=== PATIENT | female | born 1970 | race Caucasian/White ===

== ENCOUNTER → 2022-04-15 07:49 | Outpatient (CLI) | payer BC, SELFPAY ==
--- NOTE | ~2022-04-15 | XR_ITS ---
XR hip RT 2V w AP pelvis DATE: 04/15/2022 08:11 INDICATION: Right hip pain TECHNIQUE: AP pelvis. AP and lateral views of right hip COMPARISON: None FINDINGS: There is osteopenia. No pelvic fracture or bone destruction is detected. The pubic symphysis and sacroiliac joints are int act. Hip joint spaces are symmetric and relatively preserved. No fracture or dislocation, avascular n ecrosis or bone destruction of the right hip is detected. Surgical clips overlie the abdomen and pelvis. IMPRESSION: Osteopenia Reviewed, dictated and finalized at location B. IMPRESSION: Osteopenia
== END ==
PROVIDERS: PCP Family Medicine; Visit Provider Family Medicine
DX: M53.3 Sacrococcygeal disorders, not elsewhere classified (principal); M85.851 Other specified disorders of bone density and structure, right thigh
CPT/HCPCS: 73502

== ENCOUNTER 2022-05-22 12:58 | Emergency (ER) | payer BC, SELFPAY ==
[2022-05-22 13:17] VITALS: BP 149/85; PULSE 75; RESP 16; TEMP 36.9; O2SAT 100
--- NOTE | 2022-05-22 13:22 | ECG_ITS ---
Measurements Intervals [place] Rate: 56 P: 22 TX: 125 QRS: 23 QRSD: 84 T: 16 QT: 388 QTc: 376 Interpretive Statements SINUS BRADYCARDIA NONSPECIFIC T-WAVE ABNORMALITY NO PREVIOUS ECG AVAILABLE FOR COMPARISON Electronically Signed On 05-23-2022 14:12:12 CDT by Freddy Goldman M.D.
[2022-05-22 13:35] LABS: Basophils Percent Auto 0.2 % (0.2-1.2); Eosinophils Percent Auto 0.6 % (0-4.4); Hematocrit 38.5 % (37.0-47.0); Hemoglobin 11.7 g/dL (12.0-15.0); Immature Granulocyte Absolute 0.02 K/mm3 (0.00-0.031); Immature Granulocyte Percent A 0.4 % (0-0.5); Lymphocytes Absolute Auto 0.78 K/mm3 (0.9-3.2); Lymphocytes Percent Auto 16.8 % (18.3-44.2); Mean Corpuscular HGB Conc 30.4 g/dl (32-36); Mean Corpuscular Hemoglobin 22.3 pg (26-34); Mean Corpuscular Volume 73.3 fl (80-100); Mean Platelet Volume 10.4 fl (7.4-10.4); Monocytes Absolute Auto 0.4 K/mm3 (0.1-0.6); Neutrophils Absolute Auto 3.4 K/mm3 (1.3-6.7); Platelet Count Result 225 k/mm3 (150-375); Red Blood Count 5.25 M/mm3 (4.2-5.4); Red Cell Distribution Width 22.9 % (11.5-14.5); White Blood Count 4.7 K/mm3 (4.5-10.0)
[2022-05-22 13:54] LABS: Alanine Aminotransferase 17 U/L (6-35); Alkaline Phosphatase 130 U/L (38-126); Anion Gap 9 mmol/L (8-16); Aspartate Amino Transferase 19 U/L (14-36); Bilirubin,Total 0.5 mg/dL (0.2-1.3); Blood Urea Nitrogen 12 mg/dL (7-17); Calcium 9.1 mg/dL (8.4-10.2); Carbon Dioxide 26 mmol/L (22-30); Chloride 103 mmol/L (98-107); Estimated CRCL calculation 84 ml/min; Estimated Glomerular Filt Rate > 60; Glucose 112 mg/dL (65-110); Lipase 128 U/L (23-300); Potassium 3.5 mmol/L (3.4-5.0); Sodium 138 mmol/L (137-145)
[2022-05-22 13:59] LABS: Platelet Estimate Adequate (Adequate)
[2022-05-22 14:00] LABS: Anisocytosis 2+ (NORMAL); Ovalocytes 2+ (NORMAL); Poikilocytosis 1+ (NORMAL); Tear Drop Cells 1+ (NORMAL)
[2022-05-22 16:08] VITALS: BP 136/76; PULSE 58; RESP 18; O2SAT 100
[2022-05-22 16:22] LABS: Appearance Urine Clear (Clear); Bilirubin Urine Negative (Negative); Blood Urine Negative (Negative); Color Urine Yellow (Yellow); Glucose Urine UA Negative (Negative); Ketones Urine Negative (Negative); Leukocyte Esterase Ur Trace LEU/UL (Negative); Nitrate Urine Negative (Negative); Protein Urine Negative (Negative); Specific Grav Ur 1.015 (1.001-1.035); Urobilinogen Urine 0.2 mg/dL (<2.0); pH Urine 8.5 (5.0-9.0)
[2022-05-22 16:29] LABS: Amorphous Sediment Urine Moderate; Bacteria Urine Trace /hpf; Mucus Urine Rare /lpf; RBC Urine 0-2 /hpf (0-2); WBC Urine 0-3 /hpf
[2022-05-22 16:30] LABS: Add Urine Microscopic? YES
[2022-05-22] MEDS: BELLADONNA ALK/PHENOB ELIX 10 ML, MAG HYDROX/ALUMINUM HYD/SIMETH 30 ML, LIDOCAINE HCL 2... PO (17:00)
--- NOTE | 2022-05-22 19:08 | ED.GENADULT ---
HPI - General Adult General Chief complaint: Abdominal Pain Stated complaint: epigastric pain Time Seen by Provider: 05/22/22 16:12 History of Present Illness HPI narrative: Patient is a 51-year-old female who presents ER with acid reflux. Ongoing over the last couple days. She has been taking calcium carbonate to try to decrease her discomfort. It works intermittently. Feels a burning going up into her chest and throat. Has had issues with this in the past and used to take Protonix. She does not have any Protonix at this time. No exertional chest pain or chest pressure. No dark black stools. Has had no diarrhea. Related Data Allergies Allergy/AdvReac Type Severity Reaction Status Date / Time No Known Allergies Allergy Verified 05/22/22 16:11 Review of Systems Review of Systems: All systems reviewed & are unremarkable except as noted in HPI and below Constitutional: Constitutional: Denies chills and Denies fever(s) Cardiovascular: Cardiovascular: Denies chest pain, Denies rapid heart rate and Denies radiating jaw, neck or arm pain Respiratory: Respiratory: Denies cough and Denies dyspnea Gastrointestinal: Gastrointestinal: Denies abdominal pain, Reports heartburn, Denies diarrhea, Denies nausea and Denies vomiting PMFSH Past Medical History Medical History Asthma Cervical cancer, FIGO stage IB2 Gout Morbid obesity JOELLE (obstructive sleep apnea) TMJ articul disc disordr Surgical History Surgical History Bariatric surgery status S/P total hysterectomy and BSO (bilateral salpingo-oophorectomy) Status post chemotherapy Status post radiation therapy Social History Social History (Updated 05/10/22 @ 07:40 by Sana Gillespie) Social History: Smoking status: Never smoker Second hand tobacco smoke exposure: No Alcohol intake: current Alcohol use details: socially Substance use: never Substance use type: does not use Gender identity (if verbalized by the patient): Female Sexual Orientation (if Verbalized by the Patient): Straight or Heterosexual Exam Narrative: GENERAL: Well-appearing, well-nourished, and in no acute distress. HEAD: Normocephalic, atraumatic. NECK: Supple. CHEST: Clear to auscultation. No respiratory distress. HEART: Regular rate and rhythm. Normal peripheral pulses. ABDOMEN: Soft, nontender, nondistended. EXTREMITIES: Normal range of motion. No edema. SKIN: Warm, dry, no rash. NEURO: Alert and oriented x3. PSYCH: Normal mood and affect. Course Course Emergency Course: Patient given GI cocktail. Will treat as stomach ulcer with twice daily Protonix. Vital Signs Vital signs: Vital Signs Temperature 98.4 F 05/22/22 13:17 Pulse Rate 75 05/22/22 13:17 Respiratory Rate 16 05/22/22 13:17 Blood Pressure 149/85 H 05/22/22 13:17 Pulse Oximetry 100 05/22/22 13:17 Oxygen Delivery Room Air 05/22/22 13:17 Temperature 98.4 F 05/22/22 13:17 Pulse Rate 58 L 05/22/22 16:08 Respiratory Rate 18 05/22/22 16:08 Blood Pressure 136/76 05/22/22 16:08 Pulse Oximetry 100 05/22/22 16:08 Oxygen Delivery Room Air 05/22/22 16:08 Medical Decision Making Vital Signs Vital Signs: Vital Signs Temperature 98.4 F 05/22/22 13:17 Pulse Rate 75 05/22/22 13:17 Respiratory Rate 16 05/22/22 13:17 Blood Pressure 149/85 H 05/22/22 13:17 Pulse Oximetry 100 05/22/22 13:17 Oxygen Delivery Room Air 05/22/22 13:17 Temperature 98.4 F 05/22/22 13:17 Pulse Rate 58 L 05/22/22 16:08 Respiratory Rate 18 05/22/22 16:08 Blood Pressure 136/76 05/22/22 16:08 Pulse Oximetry 100 05/22/22 16:08 Oxygen Delivery Room Air 05/22/22 16:08 Lab Data Result diagrams: 05/22/22 13:29 05/22/22 13:30 Labs: Lab Results 05/22/22 05/22/22 05/22/22 Range/Units 13:29 13:30 16:12 WBC
[2022-05-22 19:42] VITALS: BP 119/66; PULSE 81; RESP 20; O2SAT 98
== END 2022-05-22 19:47 | disposition home or self-care (01) ==
PROVIDERS: Emergency Medicine; Emergency Provider Emergency Medicine; PCP Family Medicine
DX: K21.9 Gastro-esophageal reflux disease without esophagitis (principal); J45.909 Unspecified asthma, uncomplicated; M10.9 Gout, unspecified; E66.01 Morbid (severe) obesity due to excess calories; Z68.27 Body mass index [BMI] 27.0-27.9, adult; Z90.710 Acquired absence of both cervix and uterus; Z90.722 Acquired absence of ovaries, bilateral; Z90.79 Acquired absence of other genital organ(s); Z85.42 Personal history of malignant neoplasm of other parts of uterus; R00.1 Bradycardia, unspecified; R94.31 Abnormal electrocardiogram [ECG] [EKG]
CPT/HCPCS: 36415; 80053; 81001; 81025; 83690; 85025; 93005; 99283; A9270

== ENCOUNTER 2022-11-14 08:03 | Outpatient (CLI) | payer BC, SELFPAY ==
--- NOTE | ~2022-11-14 | US_ITS ---
EXAMINATION: US venous doppler [facility] DATE: 11/14/2022 09:22 INDICATION: Lower limb pain TECHNIQUE: Grayscale ultrasound images without and with compression and Doppler ultrasound images of the bilateral lower extremity veins were obtained. COMPARISON: None. FINDINGS: The visualized portions of right common femoral vein, profunda (deep) femoral vein, femoral vein, pop liteal vein, posterior tibial veins, peroneal veins, gastrocnemius vein and greater saphenous vein ou tflow are patent. The visualized portions of left common femoral vein, profunda femoral vein, femoral vein, popliteal v ein, posterior tibial veins, peroneal veins, gastrocnemius vein and greater saphenous vein outflow ar e patent. IMPRESSION: 1. No deep venous thrombosis in either lower limb. Reviewed, dictated and finalized at location A. [employer] TRA[employer]
--- NOTE | ~2022-11-14 | US_ITS ---
EXAMINATION: US art doppler w press LE DATE: 11/14/2022 09:22 INDICATION: Claudication. TECHNIQUE: Segmental pressures and plethysmographic and Doppler waveforms of the brachial and lower e xtremity arteries were obtained. COMPARISON: None. FINDINGS: Right and left brachial artery pressures of 124 mm Hg and 114 mm Hg, respectively, are concordant (no rmal difference <= 30 mmHg). The right low-thigh pressure index is 1.37. The right ankle-brachial index (SEBAS) is 1.21 (normal >= 0 .9-1.0). The right great toe-brachial index (TBI) is 0.90 (normal >= 0.65). Arterial Doppler waveform s are triphasic in common femoral artery and biphasic from superficial femoral artery to the ankle. The left high-thigh pressure index is 1.34. The left SEBAS is 1.19. The left TBI is 0.79. Arterial Dopp ler waveforms are at least triphasic in common femoral artery and superficial femoral artery, biphasi c in popliteal artery, and at least triphasic at the ankle. IMPRESSION: 1. No significant arterial occlusive disease. Reviewed, dictated and finalized at location A. CAL ATTENDANT
== END 2022-11-14 08:04 | disposition home or self-care (01) ==
PROVIDERS: PCP Family Medicine; Visit Provider Nurse Practitioner Gerontology
DX: M79.89 Other specified soft tissue disorders (principal); M79.606 Pain in leg, unspecified
CPT/HCPCS: 93923; 93970

== ENCOUNTER 2023-03-16 12:08 | Outpatient (CLI) | payer BC, SELFPAY ==
--- NOTE | ~2023-03-16 | XR_ITS ---
AP view of the pelvis and AP and lateral views of the bilateral hips Clinical history: Pain Findings: No acute fracture or dislocation is seen. There is severe degenerative change of both hip j oints, with marked joint space narrowing and reactive sclerotic change. There is mild flattening/cristi deling of the left femoral head Soft tissues are unremarkable. Impression: Severe osteoarthritic change of both hip joints, which is rapidly and significantly progressed as com pared to 04/15/2022. Finding suggests rapidly destructive osteoarthritis of both hip joints. Correlate clinically for other inflammatory/erosive arthropathy. Reviewed, dictated and finalized at location M. Impression: Severe osteoarthritic change of both hip joints, which is rapidly and significa ntly progressed as compared to 04/15/2022. Finding suggests rapidly destructive o steoarthritis of both hip joints. Correlate clinically for other inflammatory/e rosive arthropathy.
== END 2023-03-16 12:09 | disposition home or self-care (01) ==
PROVIDERS: PCP Family Medicine; Visit Provider Family Medicine
DX: R68.89 Other general symptoms and signs (principal); M16.0 Bilateral primary osteoarthritis of hip
CPT/HCPCS: 73521

== ENCOUNTER 2023-04-07 13:55 | Outpatient (CLI) | payer BC, SELFPAY ==
--- NOTE | ~2023-04-07 | DEXA_ITS ---
Bone Density Report Name: BEN SOLIS Age: 52 Sex: Female Ethnicity: White Date of : 1970 Indication: postmenopausal; screening for osteoporosis; height loss; prior fracture; cancer; Referring Provider: LASHA OGDEN Study: Bone densitometry was performed. Exam Date: April 07, 2023 Accession number: [id number] Bone Density: Region BMD T-score Z-score Classification AP Spine(L1-L4) 0.800 -2.2 -1.4 Osteopenia Femoral Neck (Left) 0.805 -0.4 0.4 Normal Total Hip (Left) 0.643 -2.4 -1.9 Osteopenia Femoral Neck (Right) 0.723 -1.1 -0.3 Osteopenia Total Hip (Right) 0.667 -2.3 -1.7 Osteopenia Total Hip Mean 0.655 -2.4 -1.8 Osteopenia World Health Organization criteria for BMD impression classify patients as: Normal (T-score at or above -1.0), Osteopenia (T-score between -1.0 and -2.5), or Osteoporosis (T-score at or below -2.5). 10-year Fracture Risk: FRAX not reported because: Prior hip or vertebral fracture Clinical Information Provided by Patient: Have had a previous hip or vertebral fracture Has had a low trauma fracture Has used the following medications: Vitamin D, Calcium Has the following medical conditions: Cancer Patient maximum height was 69 Menopause Age: 50 Does not regularly consume dairy products Drinks caffeinated beverages Onset of menses at age 12 Number of children 0 Impression: The patient has low bone mass, based on the Left Total Hip T-score. The patient has risk factors, including: previous fracture. Discussion: INCREASED RISK OF FRACTURE DUE TO HISTORY OF FRACTURE. The patient's previous fracture puts the patient at high risk of a future fracture. In untreated patients, the risk of osteoporotic fracture increases approximately two-fold for each 1.0 SD decrease in T-score. Low bone density is not the only risk factor for fracture; also consider factors such as patient's age, frailty or poor health, risk of falling, risk of injury, previous osteoporotic fracture, family history of osteoporosis, cigarette smoking, low body weight, etc. Not everyone with a low trauma fracture has osteoporosis; osteomalacia and other metabolic bone disorders should also be considered. Patients who have osteoporosis should be evaluated for specific diseases and conditions (secondary causes) that may cause or contribute to bone loss and fracture risk. National Osteoporosis Foundation (NOF) recommends pharmacologic intervention for patients with a prior hip or vertebral fracture regardless of BMD T-score. The patient should follow a healthful lifestyle (good nutrition with adequate calcium and vitamin D, and appropriate weight-bearing exercise). Follow-Up: Consider a repeat BMD and Vertebral Fracture Assessment (VFA) exam in 2 years or sooner if medically necessary, to reassess this patient's
== END 2023-04-07 13:56 | disposition home or self-care (01) ==
PROVIDERS: PCP Family Medicine; Visit Provider Orthopaedic Surgery
DX: M81.0 Age-related osteoporosis without current pathological fracture (principal)
CPT/HCPCS: 77080

== ENCOUNTER → 2023-04-10 09:54 | Outpatient (CLI) | payer BC, SELFPAY ==
--- NOTE | ~2023-04-10 | MR_ITS ---
EXAMINATION: MR hip LT wo con, MR hip RT wo con DATE: 04/10/2023 12:03 INDICATION: Bilateral hip osteoarthritis. TECHNIQUE: 1. Magnetic resonance imaging (MRI) of the left hip was performed without intravenous contrast. Seque nces included full-field axial PD-weighted FS FSE and T1-weighted FSE, coronal of the pelvis with PD- weighted FS FSE, small field of view of the left hip with axial PD-weighted FS FSE, sagittal PD-weigh juanita FS FSE and coronal PD weighted FS FSE. Additional radial T1-weighted FGR oriented orthogonal to t he acetabular rim were obtained for evaluation of the labrum. 2. MRI of the right hip was performed without intravenous contrast. Sequences included small field of view of the right hip with axial PD-weighted FS FSE, sagittal PD-weighted FS FSE and coronal PD weig hted FS FSE. Additional radial T1-weighted FGR oriented orthogonal to the acetabular rim were obtaine d for evaluation of the labrum. COMPARISON: None FINDINGS: Advanced osteoarthritis at the bilateral hips with loss of bone stock with remodeling of the articula r surfaces at the cephalad aspect of the bilateral femoral heads which is slightly worse on the right . Less severe remodeling of the articular surfaces at the bilateral acetabula. There is prominent sub articular edema-like and scattered subarticular cystlike changes at both sides of the articular surfa eagle of both hips. The loss of bone stock resulting cephalad migration of the bilateral femurs within the acetabula. Mild likely reactive synovitis without significant joint effusions at either hip. There is marrow edema surrounding incomplete low signal intensity insufficiency fracture lines at the anterior aspect of the bilateral sacral ala. No other fractures identified. Normal and symmetric mus lary bulk and signal in the pelvis and visualized proximal thighs. The iliopsoas, gluteal and proximal hamstring tendons are normal. Limited evaluation of visceral organs of the pelvis is unremarkable. No pathologically enlarged pelvic/inguinal lymphadenopathy. IMPRESSION: 1. Advanced osteoarthritis at the bilateral hips. The rapid development since 04/15/2022 suggests secon miranda osteoarthritis related to osteonecrosis, trauma, inflammatory arthritis or infection. 2. Incomplete insufficiency fractures along the anterior margins of the bilateral sacral ala. Reviewed, dictated and finalized at location A. IMPRESSION: 1. Advanced osteoarthritis at the bilateral hips. The rapid development since suggests secondary osteoarthritis related to osteonecrosis, trauma, inf lammatory arthritis or infection. 2. Incomplete insufficiency fractures along the anterior margins of the bilater al sacral ala.
== END ==
PROVIDERS: Visit Provider Orthopaedic Surgery
DX: M16.0 Bilateral primary osteoarthritis of hip (principal)
CPT/HCPCS: 73721

== ENCOUNTER 2024-11-29 07:15 | Outpatient (CLI) | payer BC, SELFPAY ==
--- OUTSIDE RECORDS SUMMARY | 2024-11-29 07:23 | XMS_ITS | Data Portability ---
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 I would recommend obtaining an MRI scan of both hips. I would think the proximal femurs would be out of the field of radiation but the acetabulum may be involved with radiation induced osteonecrosis as well which will have a bearing on acetabular fixation with total hip replacement. I explained to her that I do the direct anterior approach and this would intersect with her recent panniculectomy incision and put her at high risk for corner necrosis of the scan for the incisions come together and I think this would be a contraindication to a direct anterior approach. I recommended that we refer her to Dr. Hunt who is an orthopedic oncologist to does hip replacements for oncologic disease and pathologic bone has the approach may need to be modified depending on the status of her ileum with respect to possible radiation induced osteitis or osteonecrosis of the ileum. I recommended obtaining a bone density test. We will ask for both hips and lumbar spine. I would recommend we check a 25 hydroxy vitamin-D and supplement this if it is low. I recommended that she use a walker as she is at risk for falling. She does not want to do that. She is very motivated to go back to work the April. She does not feel they would letter in with a walker. At least she could use a walker around the house or whenever she is off work. Her mother had 1 and she will use that 1. 45 minutes were spent total care this patient more than half the time spent in [id number] care. [email or web address] Not available 03/30/2023 14:11:13 Plan of Treatment Reminders Order Date Submit Date Provider Last Modified By Organization Details Last Modified Time Details Appointments None recorded. Lab None recorded. Referral None recorded. Procedures None recorded. Surgeries None recorded. Imaging XR, hip, bilateral 2022 023 [email or web address] [facility], [facility], [place], [address], 15:45:56 Medication Orders None recorded. Patient TargetsNo targets recorded. Patient InstructionsNo instructions recorded. Reason for Referral None Reported. Results Created Date Observation Date Name Description Value Unit Range Abnormal Flag Note LastModifiedBy Organization Detail LastModifiedTime 03/28/2003/16/2023 XR, hip + pelvi s, bilat eral, 2 view No observ ation record ed. [email or web address] Not Available 03/16 11:36:28 03/28/2004/15/2022 XR, hip + pelvi s, unila teral , 2 or 3 view No observ ation record ed. [email or web address] Not Available 03/16 11:36:28 03/30/20 XR, hip, bilat eral No observ ation record ed. [email or web address] [facility] [address], [place], [address], 03/30/2023 14:06:10 04/11/20 23 04/07/2023 bone densi ty No observ ation record ed. [place] [id number] [facility] [address], [place], [address], 04/19/2023 16:04:08 04/12/20 23 04/10/2023 MRI, hip, w/o contr ast No observ ation record ed. [address] [facility] [address], [place], [address], 04/12/2023 15:34:04 Result Notes None recorded. Problems Name Problem SNOMED Code Status Onset Date Resolution Date Notes Provider Name and Address Organization Details Recorded Time Bilateral hip joint pain 7046665086610 9100 Active 2022 CORTEZ Samaniego null, [facility] [employer] [facility] 3 11:35:23 Osteoarthri tis 133833251 Active 2022 Megan Ritchie CMA null, [place] [employer] [place] [employer] [facility] 3 13:58:34 Osteoporosi s 48918516 Active 2022 Megan Ritchie CMA null, [facility] [employer] [facility] 3 14:02:35 Osteopenia 439466886 Active 2022 Megan Ritchie CMA null, [facility] [employer] [facility] 3 16:04:54 Vitamin D deficiency 56552606 Active 2022 Megan Ritchie CMA null, [employer] [facility] [employer] [facility] 3 09:04:53 Problem Notes None recorded. Procedures Surgical History Date Name Laterality Status Provider Name and Address Organization Details Recorded Time excision of skin completed CORTEZ Samaniego [employer] [facility] [employer] [facility] 03/30/2023 11:34:22 Imaging Results Imaging Date Name Status LastModified by Organiz ation Details LastModified Time 03/16/2023 XR, hip + pelvis, bilateral, 2 view completed Information not available 03/28/2023 11:36:28 04/15/2022 XR, hip + pelvis, unilateral, 2 or 3 view completed Information not available 03/28/2023 11:36:28 03/30/2023 XR, hip, bilateral completed [email or web address] [facility] [address], [place], [address], 03/30/2023 14:06:10 04/07/2023 bone density completed [address], [place], [address], 04/19/2023 16:04:08 04/10/2023 MRI, hip, w/o contrast completed [address], [place], [address], 04/12/2023 15:34:04 Procedure Notes None recorded. Medical Equipment None Reported. Medications Name Sig Start Date Stop Date Status Note LastModified by Organization Details LastModified Time celecoxib 200 mg capsule TAKE 1 CAPSULE BY MOUTH TWICE DAILY 03/30 completed Not Available Not Available Not Available prednisone 10 mg tablet 03/30 completed Not Available Not Available Not Available Carafate 100 mg/mL oral suspension 03/30 completed Not Available Not Available Not Available tizanidine 2 mg tablet TAKE 1 TABLET BY MOUTH THREE TIMES DAILY NEEDED FOR MUSCLE SPASMS 03/30 completed Not Available Not Available Not Available CombiPatch 0.05 mg-0.14 mg/24 hr transdermal 03/30 completed Not Available Not Available Not Available hydrocodone 5 mg-acetamino phen 325 mg tablet TAKE 1 TABLET BY MOUTH FOUR TIMES DAILY NEEDED FOR PAIN 03/30 completed Not Available Not Available Not Available tramadol 50 mg tablet TAKE 1 TABLET BY MOUTH EVERY 6 HOURS NEEDED FOR PAIN 03/30 completed Not Available Not Available Not Available pentoxifylli ne ER 400 mg tablet,exten ded release 03/30 completed Not Available Not Available Not Available cephalexin 500 mg capsule 03/30 completed Not Available Not Available Not Available pantoprazole 40 mg tablet,delay ed release TAKE 1 TABLET BY MOUTH TWICE DAILY active Not Available Not Available No t Available diclofenac potassium 50 mg tablet active Not Available Not Available No t Available oxycodone 5 mg tablet 03/30 completed Not Available Not Available Not Available enoxaparin 40 mg/0.4 mL subcutaneous syringe 03/30 completed Not Available Not Available Not Available pregabalin 50 mg capsule TAKE 1 CAPSULE BY MOUTH THREE TIMES DAILY 03/30 completed Not Available Not Available Not Available pregabalin 300 mg capsule TAKE 1 CAPSULE BY MOUTH TWICE DAILY 03/30 completed Not Available Not Available Not Available Gavilyte-C 240 gram-22.72 gram-6.72 gram-5.84 gram oral solution 03/30 completed Not Available Not Available Not Available Gemtesa 75 mg tablet TAKE 1 TABLET BY MOUTH DAILY active Not Available Not Available No t Available Vitals Date Recorded Body height Body mass index (BMI) Body weight Provider Name and Address Organization Details Last Updated DateTime 03/30/2023 162.56 cm 29.4 kg/m2 93087.3 g CORTEZ Samaniego [facility] [employer] [facility] 03/30/2023 11:54:38 Social History Question Answer Notes LastModified by Organizat ion Details LastModified Time Tobacco Smoking Status Never Smoker CORTEZ Samaniego ami [facility] [employer] [facility] 03/30/2023 11:33:36 What Is Your Level Of Alcohol Consumption? None [email or web address] Information not available 03/30/2023 Sex: Unknown Functional Status None recorded. Mental Status None recorded. Family History Relationship Description Onset Age of this Age Resolved Age Notes LastModified by Organization Details LastModified Time Maternal Grandfather Family history of malignant neoplasm [email or web address] Not available 2022 11:33:29 Maternal Grandmother Family history of malignant neoplasm [email or web address] Not available 2022 11:33:29 Medical History Condition Response URINARY/BLADDER/KIDNEY PROBLEMS Y ARTHRITIS Y GOUT Y CANCER: SPECIFY Y Gynecological HistoryNo gynecological history recorded. Obstetrics History GPAL:G 0 P 0 0 0 0 Past Encounters Encounter ID Performer Location Encounter Start Date Encounter Closed Date Diagnosis/Indication Diagnosis SNOMED-CT Code Diagnosis ICD10 Code Diagnosis Note [id number] Beck Mena MD [facility] [address] [address] 03/30/2023 11:03:41 03/30/2023 14:15:54 Bilateral hip joint pain [id number] 8343494 M25.551 M25.552 Health Concerns Section Related Observation LastModified by Organization Detai ls LastModified Time None Recorded Concern Status LastModified by Organization Details LastModified Time None Recorded Advance Directives Directive None Recorded Payers Encounter Date Sequence Insurance Name Policy Number Policy Rankin Covered Member ID Rankin Member ID Guarantor Name 03/30/2023 1 [place] [id number] Brady Morataya [id number] Brady Sanden Notes Date Note Type Note Provider Name and Address Organization Details Recorded Time 03/30/2023 text/html patient is a 52-year-old female referred by Dr. Rider for evaluation of her hip arthritis. She had x-rays on 03/16/2023 at [facility] AP, frogleg lateral of each hip and AP pelvis which demonstrate findings most consistent with avascular necrosis of both hips, stage IV with moderate collapse the superior femoral head on the right rather severe collapse of superior femoral head on the left. Significant osteopenia is suggested and she has type C proximal femurs usually seen with osteoporosis bilaterally. She had no problems with either hip until she noticed a ripping sensation lateral aspect of her right hip without pain in November of 2021. In early 2020 she is diagnosed with cervical cancer. In December she had surgery and at time of surgery they found a positive lymph node and the hysterectomy was abandoned in favor a removal polyp and the lymph node followed by chemotherapy and external beam radiation. She had these treatments from December until March of 2021. She had a strange ripping sensation lateral aspect of the right hip without pain in November at 23. Then her left hip started hurting her on the side and she had symptoms of bursitis and a cortisone shot for that which helped about 2 weeks and then she developed similar symptoms on the right side had a cortisone shot did not seem to help. And in March of 2022 her pain became worse and it has never used up since. her pain is in the lateral hip bilaterally and anterolateral hip bilaterally and occasionally in the anterior thighs and medial groins left worse than the right. In November she had MRI scan of sacrum and lumbar spine. MRI scan of the sacrum showed bilateral insufficiency fractures. MRI scan of the lumbar spine showed chronic wedge deformities at T12 and L1 and enhancing lesions at L5 and sacrum thought to be either metastasis or hemangioma. She had a PET scan 02/07/2023 which showed no evidence of metastases in L5 over S1 or sacrum and no recurrence in the cervix. She is scheduled see a spine doctor later today for the degenerative disc disease and spinal stenosis she has. She has not had particularly severe pain in the sacral region but milder symptoms there. She did go to Pain Management had injections left PSIS and left buttock. She recently had a panniculectomy of a lower abdominal pannus which was done 3 weeks ago. She used to weigh 330 lb and her weight today 178 is a 100 and 52 lb weight loss. Beck Mena MD [address] [place] [address], [place], [address], [place] [facility] 03/30/2023 14:11:26 OBGyn Episode No OBEpisode recorded.
--- OUTSIDE RECORDS SUMMARY | 2024-11-29 07:23 | XMS_ITS ---
Author Organization [facility] Address [address] [place], [place] [id number] Care Team Providers Care State Wildlife Officer Name Role Phone KAYY DUNBAR Primary Care Provider Unavail able Power Jennings Unavailable [phone] REASON FOR VISIT hip pain Encounters Encounter Location Date Provider Diagnosis [facility] [address] [place], [place] [id number] 06/12/2023 Power Jennings PLAN OF TREATMENT No Information
--- OUTSIDE RECORDS SUMMARY | 2024-11-29 07:23 | XMS_ITS | Clinical Summary ---
Author Organization [facility] [employer] Address [address] [place] [address] Care Team Providers Care Orthopedically Impaired Teacher Name Role Phone Unavailable Primary Care Provider Unavailabl e Source Comments [facility] [employer] [facility] [employer],non-owned Affiliates and Associated Physician Practices is amultiple site organization consisting of ambulatory clinics and hospital sitesin [place], [place], [place] and [place]. This disclosure is being madepursuant to the Care Everywhere program and may not contain all information available regarding this patient. Last updated 18.[facility] [employer] [facility] [employer] Social History Tobacco Use Types Packs/Day Years Used Date Smoking Tobacco: Never Assessed Sex and Gender Information Value Date Recorded Sex Assigned at Not on file Gender Identity Not on file Sexual Orientation Not on file Plan of Treatment Health Maintenance Due Date Last Done Comments COLOGUARD (AGES 45-75) - COL ON CA SCREENING 1971 COLON MONITORING 1971 COLONOSCOPY - COLON CA SCREENING 1971 CT COLONOGRAPHY - COLON CA SCREENING 1971 Colorectal Cancer Screening 1971 FIT - COLON CA SCREENING 1971 FLEX SIG - COLON CA SCREENING 1971 LIPID TESTING 1971 PAP SMEAR 1971 HIV SCREENING 12/14/1986 HEPATITIS C SCREENING 12/10/1989 DTAP/TDAP/TD VACCINES (1 - Tdap) 12/14/1990 HEPATITIS B VACCINE (1 of 3 - 19+ 3-dose series) 12/14/1990 PNEUMOCOCCAL VACCINE 50+ (1 of 1 - PCV) 12/14/2021 ZOSTER VACCINE (1 of 2) 12/14/2021 COVID-19 VACCINE ( - 2023-2 5 season) 2024 INFLUENZA VACCINE (#1) 2024 DEPRESSION SCREENING 10/16/2024 MAMMOGRAM 02/07/2025 02/07/2023 HIB VACCINE Aged Out No longer eligi ble based on patient's age to complete this topic HPV VACCINE Aged Out No longer eligi ble based on patient's age to complete this topic MENINGOCOCCAL (Group B) VACCINE Aged Out No longer eligible based on patient's age to complete this topic MENINGOCOCCAL VACCINE Aged Out No petrona rory eligible based on patient's age to complete this topic PNEUMOCOCCAL VACCINE Aged Out No long er eligible based on patient's age to complete this topic
--- OUTSIDE RECORDS SUMMARY | 2024-11-29 07:24 | XMS_ITS | Patient Health Summary ---
Author Organization [facility] Address [address] [place] [address] Care Team Providers Care Concrete Analyst Name Role Phone Unavailable Primary Care Provider Unavailabl e Note from [facility],non-owned Affiliates and Associated Physician Practices is amultiple site organization consisting of ambulatory clinics and hospital sitesin [place], [place], [place] and [place]. This disclosure is being madepursuant to the Care Everywhere program and may not contain all information available regarding this patient. Last updated 18.[facility] Social History Tobacco Use Types Packs/Day Years Used Date Smoking Tobacco: Never Assessed Sex and Gender Information Value Date Recorded Sex Assigned at Not on file Gender Identity Not on file Sexual Orientation Not on file
--- OUTSIDE RECORDS SUMMARY | 2024-11-29 07:24 | XMS_ITS | Patient Health Record ---
Author Organization [facility] Address [address] [place], [place] [id number] Care Team Providers Care Thread Inspector Name Role Phone KAYY DUNBAR Primary Care Provider Unavail able Power Jennings Unavailable [phone] REASON FOR REFERRAL No Information PLAN OF TREATMENT No Information Insurance Providers Payer Name Payer Address Payer Phone Subscriber Number Group Number Insured Name Patient Relationship to Insured Coverage Start Date Coverage End Date [facility] [address] [place] [address] [phone] [id number] Brady Morataya Self - patient is the insured 3
--- OUTSIDE RECORDS SUMMARY | 2024-11-29 07:24 | XMS_ITS | Referral Summary ---
Author Organization [facility] Address [address] [facility] [place] [address] Care Team Providers Care Registered Nurse Surgical Services Name Role Phone Unavailable Primary Care Provider Unavailabl e Source Comments [facility],non-owned Affiliates and Associated Physician Practices is amultiple site organization consisting of ambulatory clinics and hospital sitesin [place], [place], [place] and [place]. This disclosure is being madepursuant to the Care Everywhere program and may not contain all information available regarding this patient. Last updated 18.[facility] [employer] Social History Tobacco Use Types Packs/Day Years Used Date Smoking Tobacco: Never Assessed Sex and Gender Information Value Date Recorded Sex Assigned at Not on file Gender Identity Not on file Sexual Orientation Not on file Plan of Treatment Not on file
--- OUTSIDE RECORDS SUMMARY | 2024-11-29 07:26 | XMS_ITS | Referral Summary ---
Author Organization [facility] Address [address] [place] [address] Care Team Providers Care Financial Underwriter Name Role Phone Ellie Francois MD Primary Care Provider Allergies No known active allergies Medications mv,Ca,min-iron-FA -guarana-caff 18 mg iron- 400 mcg-180 mg tabletIndications :One A Day Multivitamin Take by mouth Active ZDY35-TE-po6-huf- epa-fish oil 400 mcg-35 mg -25 mg-5 mg tablet,chewableIn dications:PNV Gummies Take by mouth Active cholecalciferol (VITAMIN D-3) 1,000 unitIndications:S trength Not Reported Take by mouth daily Active calcium carbonate-mag hydroxid 1,000-200 mg tablet,chewable Take by mouth Active calcium-magnesium -zinc tablet Take by mouth Paulino 1000 MG/Mag 400 MG/Zinc 15 MG Active vit-iron fum-folic ac 28 mg iron- 800 mcg tablet Take 1 tablet by mouth daily Active cyclobenzaprine (FLEXERIL) 10 mg tablet Take 1 tablet (10 mg total) by mouth 3 (three) times a day as needed for muscle spasms Active pantoprazole DR (PROTONIX) 40 mg EC tablet Take 1 tablet (40 mg total) by mouth daily 1 Active estradiol-norethi ndrone acet (COMBIPATCH) 0.05-0.14 mg/[address] 1 patch on the skin 2 (two) times a week 2 Active bupivacaine (MARCAINE) 0.5 % (5 mg/mL) injection 2-5 mL (10-25 mg total) by other route 2 Active celecoxib (CeleBREX) 100 mg capsule Take 1 capsule (100 mg total) by mouth 2 (two) times a day as needed 2 Active sucralfate (CARAFATE) suspension 1 gram/10 mL 2 Active diclofenac (CATAFLAM) 50 mg tablet 3 Active tiZANidine (ZANAFLEX) 2 mg tablet Take 1 tablet (2 mg total) by mouth 3 (three) times a day as needed 3 Active pentoxifylline ER (TRENtal) 400 mg CR tablet 3 Active Active Problems Problem Noted Date Diagnosed Date Bilateral low back pain without sciatica 023 Pannus, abdominal 10/04/2022 Overview (10/04/2022): Added automatically from request for surgery [id number] Social History Tobacco Use Types Packs/Day Years Used Date Smoking Tobacco: Never Smokeless Tobacco: Never Tobacco Cessation:Counseling Given: Not Answered Alcohol Use Standard Drinks/Week Comments Not Currently 0 (1 standard drink = 0.6 oz pur e alcohol) AUDIT-C Answer Date Recorded Q1: How often do you have a drink containing alc ohol? Monthly or less 10/04/2022 Average Number of Drinks Not on file 022 Frequency of Binge Drinking Not on file 09/16 Personal Safety Answer Date Recorded Getting School Help Needed Not on file 10/05 Comments No Sex and Gender Information Value Date Recorded Sex Assigned at Not on file Legal Sex Female 2:05 PM CRIMINAL RESEARCH SPECIALIST Gender Identity Not on file Sexual Orientation Not on file Last Filed Vital Signs Vital Sign Reading Time Taken Comments Blood Pressure 112/73 01/19/2023 2:50 PM CDT Pulse 69 01/19/2023 2:50 PM CDT Temperature 36.6 C (97.8 F) 11/28/2019 9:15 AM CRIMINAL RESEARCH SPECIALIST Respiratory Rate 20 11/28/2019 9:15 AM CRIMINAL RESEARCH SPECIALIST Oxygen Saturation 98% 11/28/2019 9:15 AM CRIMINAL RESEARCH SPECIALIST Inhaled Oxygen Concentration - - Weight 88.7 kg (195 lb 9.6 oz) 01/19/2023 2:50 P M CDT Height 172.7 cm (5' 8 ) 01/19/2023 2:50 PM CDT Body Mass Index 29.74 01/19/2023 2:50 PM CDT Plan of Treatment Scheduled Procedures Name Priority Associated Diagnoses Date/Ti me PANNICULECTOMY Pannus, abdominal Insurance [facility] CHO[facility] Care Teams Financial Underwriter Relationship Specialty Start Date End Date Ellie Francois MD [address] [facility] [address] [place] [address] PCP - General Family Medicine 11/14/19
--- OUTSIDE RECORDS SUMMARY | 2024-11-29 07:26 | XMS_ITS ---
Author Organization [facility] Address [address] [place] [address] Care Team Providers Care Chief Operating Engineer Name Role Phone Ellie Francois MD Primary Care Provider [phone] Active Problems Problem Noted Date Diagnosed Date Overactive bladder 07/21/2023 Primary osteoarthritis of right hip 07/19/2023 Primary osteoarthritis of left hip 05/04/2023 GERD (gastroesophageal reflux disease) Leukopenia 05/04/2023 History of cervical cancer 05/04/2023 Vitamin D deficiency 04/20/2023 Osteopenia 04/19/2023 Osteoarthrosis 04/05/2023 Osteoporosis 04/05/2023 Bilateral low back pain without sciatica 023 Pannus, abdominal 10/04/2022 Overview (06/02/2023): Added automatically from request for surgery [id number] Proximal leg weakness 08/01/2022 Neuropathy 08/01/2022 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 Past Treatment and Therapy Plans ONCOLOGY TREATMENT Plan Name Start Date Discontinue Date Treatment Medications Discontinue Reason Plan Provider Cycles OP ONC CERVICAL_CISPL ATIN_EVERY 7 DAYS X 6 WITH CONCURRENT RADIATION 1 04/26/2024 CISplatin (PLATINOL) with mannitol Therapy Complete Jm Sanchez MD 6 of 6 cycles started Lifetime Dose Tracking * Chemical Lifetime Dose Automatic Entry Manual Entr y cisplatin 199.061 mg/m2 (420 mg) 199.061 mg/m2 (420 mg) 0 mg/m2 (0 mg) Effective Dose 61.33 mSv 61.33 mSv 0 mSv Total DLP 5,090.17 DLP 5,090.17 DLP 0 DLP CTDIvol Max 132.64 mGy 132.64 mGy 0 mGy CTDIvol Min 112.8 mGy 112.8 mGy 0 mGy
--- OUTSIDE RECORDS SUMMARY | 2024-11-29 07:26 | XMS_ITS | Clinical Summary ---
Author Organization [facility] Address [address] [place] [address] Care Team Providers Care Bus Or Truck Garage Mechanic Name Role Phone Ellie Francois MD Primary Care Provider [phone] Allergies No known active allergies Medications pantoprazole (PROTONIX) 40 mg Tablet, Delayed Release (E.C.) Take 1 Tablet (40 mg) by mouth daily. 30 Tablet 1 1 Active inulin (Fiber Gummies) 2 gram Tablet, Chewable Take 1 Tablet by mouth daily. Active multivit with calcium,iron,mi n (WOMEN'S BONE HEALTH ORAL) Take 1 Tablet by mouth daily. Active oxyBUTYnin (DITROPAN XL) 5 mg Extended Release 24 hour tablet Take 5 mg by mouth daily. 3 Active amoxicillin (AMOXIL) 500 mg capsule TAKE 4 CAPSULES BY MOUTH 1 HOUR BEFORE DENTAL APPOINTMENT 3 Active busPIRone (BUSPAR) 5 mg tablet TAKE 1 TABLET BY MOUTH THREE TIMES DAILY FOR ANXIETY 4 Active escitalopram oxalate (LEXAPRO) 5 mg tablet Take 1 Tablet by mouth daily. 4 Active zolpidem (AMBIEN) 5 mg tablet Take 5 mg by mouth nightly as needed. 4 Active amoxicillin (AMOXIL) 500 mg Tablet Take 1 tablet 4x day for 2 days 8 Tablet 4 Active amoxicillin (AMOXIL) 500 mg capsule Take 4 capsules 1 hour before dental appointment 12 Capsule 4 Active Active Problems Problem Noted Date Diagnosed Date Overactive bladder 07/21/2023 Primary osteoarthritis of right hip 07/19/2023 Primary osteoarthritis of left hip 05/04/2023 GERD (gastroesophageal reflux disease) Leukopenia 05/04/2023 History of cervical cancer 05/04/2023 Vitamin D deficiency 04/20/2023 Osteopenia 04/19/2023 Osteoarthrosis 04/05/2023 Osteoporosis 04/05/2023 Bilateral low back pain without sciatica 023 Pannus, abdominal 10/04/2022 Overview (06/02/2023): Added automatically from request for surgery [id number] Proximal leg weakness 08/01/2022 Neuropathy 08/01/2022 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 Pain in both lower extremities 08/01/2022 Pain of left sacroiliac joint 08/01/2022 Stage III carcinoma of cervix 12/25/2020 Cervical carcinoma 12/17/2020 Cervical mass 10/13/2020 Encounters Date Type Department Care Team Description 11/12/2024 External Device Data ST[facility] ABSTRACTION Provider, Abstract 11/06/2024 External Device Data [facility] ABSTRACTION Provider, Abstract 11/06/2024 External Device Data [facility] ABSTRACTION Provider, Abstract 10/30/2024 External Device Data ST[facility] ABSTRACTION Provider, Abstract 10/10/2024 Orders Only [facility] Orthopedic Surgery [address] [address] [place] [address] Keven Cooper MD 10/10/2024 Telephone [facility] Orthopedic Surgery [address] [place] [address] Keven Cooper MD tooth problem 09/02/2024 9:10 AM NUCLEAR FUELS RESEARCH ENGINEER Ancillary Procedure [address] [facility] [address] [place] [address] Keven Cooper MD Status post total hip replacement, left; S/P total right hip arthroplasty 09/02/2024 9:00 AM NUCLEAR FUELS RESEARCH ENGINEER Office Visit [facility] Orthopedic Surgery [address] [place] [phone] Keven Cooper MD Status post total hip replacement, left (Primary Dx); S/P total right hip arthroplasty from Last 3 Months Family History Medical History Relation Name Comments Colon Cancer Maternal Grandfather Osteoporosis Maternal Grandfather Osteoporosis Maternal Grandmother Healthy Mother Relation Name Status Comments Maternal Grandfather Alive Maternal Grandmother Alive Mother Alive Social History Tobacco Use Types Packs/Day Years Used Date Smoking Tobacco: Never Smokeless Tobacco: Never Tobacco Cessation:Counseling Given: Not Answered Alcohol Use Standard Drinks/Week Comments Yes 0 (1 standard drink = 0.6 oz pur e alcohol) rarely. 3 x year Feeling Safe Answer Date Recorded Are you in a relationship wi th someone who hurts you emotionally and/or physically? Unable to obtain 07/19/2023 Food Insecurity Answer Date Recorded Social/Environmental Concerns No concerns Transportation Needs Answer Date Record ed Social/Environmental Concerns No concerns Housing Stability Answer Date Recorded Social/Environmental Concerns No concerns Utility Needs Answer Date Recorded Social/Environmental Concerns No concerns Comments No Sex and Gender Information Value Date Recorded Sex Assigned at Not on file Legal Sex Female 5:32 PM NUCLEAR FUELS RESEARCH ENGINEER Gender Identity Not on file Sexual Orientation Not on file Last Filed Vital Signs Vital Sign Reading Time Taken Comments Blood Pressure 126/68 01/23/2024 11:15 AM CDT Pulse 63 01/23/2024 11:15 AM CDT Temperature 36.4 C (97.5 F) 01/23/2024 11:15 AM CDT Respiratory Rate 16 07/20/2023 8:00 AM CDT Oxygen Saturation 96% 01/23/2024 11:15 AM CDT Inhaled Oxygen Concentration - - Weight 93.9 kg (207 lb) 09/02/2024 9:02 AM NUCLEAR FUELS RESEARCH ENGINEER Height 170.2 cm (5' 7 ) 09/02/2024 9:02 AM NUCLEAR FUELS RESEARCH ENGINEER Body Mass Index 32.42 09/02/2024 9:02 AM NUCLEAR FUELS RESEARCH ENGINEER Plan of Treatment Health Maintenance Due Date Last Done Comments DTAP/TDAP/TD VACCINES (1 - Tdap) 12/14/1990 HEPATITIS B VACCINES (1 of 3 - 19+ 3-dose series) 12/14/1990 FIT-DNA Q 3 years 12/14/2016 FIT/FOBT Q 1 year 12/14/2016 Flex Sig/CT Colonography Q 5 years 12/14/2016 ZOSTER VACCINE (1 of 2) 12/14/2021 CERVICAL CANCER SCREENING 08/31/20232019, 08/19/2019, 05/04/2016, Additional history exists BREAST CANCER SCREENING 02/08/2024 02/08/20 23, 08/06/2019, 01/13/2015 INFLUENZA VACCINE (#1) 2024 Pre-Diabetes and Diabetes Screening 04/28/2026 04/28/2023, 04/27/2016 COLORECTAL SCREENING 05/10/2032 05/10/2022, 05/10/20 Colorectal Cancer Screening 05/10/2032 PNEUMOCOCCAL VACCINE 0-64 YEARS Aged Out No longer eligible based on patient's age to complete this topic Medical Devices Implanted Type Area Route Salesman Device Identifier Shelf Expiration Date Model / Serial / Lot Endo Clip Ii 10mm [id number] - [id number] Implanted:Qty: 1 on 12/17/2020 by Jm Sanchez MD at [facility] N/A: Pelvis [employer] - COVIDIEN [id number] 07/15/2025 [id number] / / [id number] Chain Hooker Clip Surgiclip Silvio 13in [id number] - [id number] Implanted:Qty: 1 on 03/09/2023 by Moe Quinteros II, MD at [facility] N/A: Abdomen [employer] - COVIDIEN 07/15/2027 [id number] / / [id number] Chain Hooker Clip Surgiclip Silvio 13in [id number] - [id number] Implanted:Qty: 1 on 03/09/2023 by Moe Quinteros II, MD at [facility] N/A: Abdomen [employer] - COVIDIEN [id number] 07/15/2027 [id number] / / [id number] Chain Hooker Clip Surgiclip Silvio 13in [id number] - [id number] Implanted:Qty: 1 on 03/09/2023 by Moe Quinteros II, MD at [facility] N/A: Abdomen [employer] - COVIDIEN 03/15/2027 [id number] / / [id number] Hemostatic Surgicel 2x14in 1950 - [id number] Implanted:Qty: 1 on 03/09/2023 by Moe Quinteros II, MD at [facility] N/A: Abdomen J&J- [employer] INC 05/15/20271950 / / [id number] Shell G7 Pps Finned Soham 52mm [id number] - [id number] Implanted:Qty: 1 on 05/04/2023 by Keven Cooper MD at [facility] Hip Left: Hip ANABEL BIOMET [id number] 12/14/2032 [id number] / / [id number] Stem Fem Taperloc Sz15 51-386428 - [id number] Implanted:Qty: 1 on 05/04/2023 by Keven Cooper MD at [facility] Hip Left: Hip [employer]ET [id number] 11/13/2028 51-1001 50 / / [id number] Shell G7 Pps Finned Szf 56mm [id number] - [id number] Implanted:Qty: 1 on 07/19/2023 by Keven Cooper MD at [facility] Hip Right: Hip [employer]ET [id number] 01/15/2033 [id number] / / [id number] Stem Fem Taperloc Sz16 51-714596 - [id number] Implanted:Qty: 1 on 07/19/2023 by Keven Cooper MD at [facility] Hip Right: Hip A[employer]ET [id number] 10/22/2031 [id number] / / [id number] Biomet Ceramic Head 36mm Implanted:Qty: 1 on 07/19/2023 by Keven Cooper MD at [facility] Hip Right: Hip BIOMET INC 03/22/2033 650-5543 / / [id number] Screw Trlgy St 6.5x30mm 65-5632-041-30 - [id number] Implanted:Qty: 1 on 05/04/2023 by Keven Cooper MD at [facility] Screw Left: Hip ANAB[employer] US INC 01/27/2033 [id number] / / [id number] Screw Trlgy St 6.5x30mm 90-5187-716-30 - [id number] Implanted:Qty: 1 on 07/19/2023 by Keven Cooper MD at [facility] Screw Right: Hip [employer] [id number] 03/07/2033 [id number] / / [id number] Edgar Sleeve Ct/Mr, 40mm Implanted:Qty: 1 on 02/15/2021 by Jm Sanchez MD at [facility] N/A: Vagina [id number] 08/24/2023 [id number] / / [id number] Description: charged by radiology G7 Acetabular System Longevity Highly Crosslinked Polyethylene Liner High Wall Implanted:Qty: 1 on 05/04/2023 by Keven Cooper MD at [facility] Left: Hip [employer] 01/15/[id number] / / [id number] Biolox Delta Modular Ceramic Head Implanted:Qty: 1 on 05/04/2023 by Keven Cooper MD at [facility] Left: Hip [employer] 08/19/2032 650-0660 / / [id number] Anabel Acetabular System Highly Crosslinked Polyethylene Liner High Wall 36mm Implanted:Qty: 1 on 07/19/2023 by Keven Cooper MD at [facility] Right: Hip BI[employer] INC [id number] 02/14/[id number] / / [id number] Procedures Procedure Name Priority Date/Time Associated Diagnosis Comments XR HIPS BILATERAL 3-4 VIEWS Routine 09/02/2024 9:21 AM NUCLEAR FUELS RESEARCH ENGINEER Status post total hip replacement, left S/P total right hip arthroplasty HEMOGLOBIN A1C Routine 04/28/2023 9:33 AM CDT MAMMO 3D KYRA SCREEN BILAT W OR WO CAD Routine 02/07/2023 8:08 AM CDT Encounter for screening for malignant neoplasm of breast, unspecified screening modality COLONOSCOPY REPORT 05/10/2022 3: 07 PM CDT CERV/VAG CYTO SCREEN PAP RLFX HPV Routine 08/31/2020 1:46 PM NUCLEAR FUELS RESEARCH ENGINEER Well woman exam with routine gynecological exam from Last 3 Months or Most Recently Relevant to Health Maintenance Results * XR HIPS BILATERAL 3-4 VIEWS (09/02/2024 9:21 AM NUCLEAR FUELS RESEARCH ENGINEER) Anatomical Region Laterality Modality Lower Extremity Computed Radiogr aphy Impressions 09/02/2024 12:54 PM NUCLEAR FUELS RESEARCH ENGINEER : Satisfactory appearance of bilateral total hip replacements. Keven Cooper MD, FAAOS Narrative 09/02/2024 12:54 PM NUCLEAR FUELS RESEARCH ENGINEER STUDY: 3 views of bilateral hips DATE: 09/02/2024 INDICATIONS: To evaluate bilateral hip pain INTERPRETATION: Both hips have been replaced. The total hip components look in excellent position and alignment bilaterally. There is no osteolysis or evidence for loosening. Polyethylene appears symmetric around the femoral heads. There are no fractures. Keven Cooper MD DIAGNOSTIC IMAGING ORDERABLES Final Result * (ABNORMAL) HEMOGLOBIN A1C (04/28/2023 9:33 AM CDT) HEMOGLOBIN A1C 5.7(H) <5.7 % 04/28/2023 11:02 AM CDT [facility] EST. AVG GLUCOSE, A1C 117 mg/dL 04/28/2023 11:02 AM CDT [facility] Blood Venipuncture / Unknown 04/28/2023 9:33 AM CDT 04/28/2023 10:27 AM CDT Narrative [facility] - 04/28/2023 11:02 AM CDT HGB A1C INTERPRETATION NORMAL: <5.7% PRE-DIABETES: 5.7 - 6.4% DIABETES: 6.5% OR GREATER Dania Yee PA-C CHEMISTRY ORDERABLES Final R esult [facility] CLIA# [id number] [address] [place] [address] * MAMMO SCRN BILAT 3D KYRA W OR WO CAD (02/07/2023 8:08 AM CDT) Anatomical Region Laterality Modality Breast Bilateral Mammography 02/07/2023 8:08 AM CDT Impressions 02/07/2023 10:46 AM CDT IMPRESSION: 1. No concerning findings. OVERALL FINAL ASSESSMENT: BI-RADS CATEGORY 1 - Negative. RECOMMENDATIONS: 1. Recommend annual mammography. Narrative 02/07/2023 10:46 AM CDT BILATERAL SCREENING DIGITAL MAMMOGRAM WITH 3D TOMOSYNTHESIS AND CAD DATE: 02/07/2023 8:08 AM DICTATION LOCATION: [facility] HISTORY: Routine yearly screening exam. TECHNIQUE: Low-dose full-field digital breast tomosynthesis examination was performed of both breasts with 2D and 3D acquisitions. CAD was utilized. COMPARISON: 08/06/2019 BREAST COMPOSITION: There are scattered areas of fibroglandular density. FINDINGS: No concerning dominant masses, suspicious calcifications, parenchymal asymmetries or areas of architectural distortion are identified in either breast. Procedure Note Jose Newby MD - 02/07/2023 BILATERAL SCREENING DIGITAL MAMMOGRAM WITH 3D TOMOSYNTHESIS AND CAD DATE: 02/07/2023 8:08 AM DICTATION LOCATION: [facility] HISTORY: Routine yearly screening exam. TECHNIQUE: Low-dose full-field digital breast tomosynthesis examination was performed of both breasts with 2D and 3D acquisitions. CAD was utilized. COMPARISON: 08/06/2019 BREAST COMPOSITION: There are scattered areas of fibroglandular density. FINDINGS: No concerning dominant masses, suspicious calcifications, parenchymal asymmetries or areas of architectural distortion are identified in either breast. IMPRESSION: 1. No concerning findings. OVERALL FINAL ASSESSMENT: BI-RADS CATEGORY 1 - Negative. RECOMMENDATIONS: 1. Recommend annual mammography. us Brock Sung MD MAMMO ORDERABLES Final Resu lt * COLONOSCOPY REPORT (05/10/2022 3:07 PM CDT) Narrative Procedure Note Catherine Terrell MD - 05/10/2022 3:06 PM CDT [facility] Endoscopy Patient Name: Brady Morataya Procedure Date: 05/10/2022 Date of : 1970 Attending MD: Catherine Terrell MD Procedure: Colonoscopy Indications: Screening for colorectal malignant neoplasm Providers: Catherine Terrell MD Referring MD: Ellie Francois MD Medicines: Monitored Anesthesia Care Complications: No immediate complications. Procedure: Informed consent was obtained for the procedure, including moderate sedation after risks were discussed. Based on the pre-procedure assessment, including review of the patient's medical history, medications, allergies, and review of systems, the patient was deemed to be an appropriate candidate for sedation. A timeout was performed. Continuous ECG monitoring, pulse oximetry, blood pressure monitoring, and direct observation were performed. The Colonoscope was introduced through the anus and advanced to the terminal ileum. The colonoscopy was performed without difficulty. The patient tolerated the procedure well. The quality of the bowel preparation was good. The terminal ileum, ileocecal valve, appendiceal orifice, and rectum were photographed. Estimated Blood Loss: Estimated blood loss was minimal. Findings: The perianal and digital rectal examinations were normal. The terminal ileum appeared normal. The mucosa vascular pattern in the recto-sigmoid colon was diffusely increased. This was biopsied with a cold forceps for histology. The exam was otherwise without abnormality on direct and retroflexion views. Impression: - The examined portion of the ileum was normal. - Increased mucosa vascular pattern in the recto-sigmoid colon consistent with diffuse arterovascular malformations and angiodysplasias. No active bleeding was seen. This was biopsied. - The examination was otherwise normal on direct and retroflexion views. Recommendation: - Patient has a contact number available for emergencies. The signs and symptoms of potential delayed complications were discussed with the patient. Return to normal activities tomorrow. Written discharge instructions were provided to the patient. - Resume previous diet. - Continue present medications. - Await pathology results. - Repeat colonoscopy in 10 years for screening purposes. Catherine Terrell MD 05/10/2022 3:06:21 PM This report has been signed electronically. Number of Addenda: [phone]; [place] [address] us Catherine Terrell MD GI PROCEDURE ORDERABLES F inal Result * (ABNORMAL) CERV/VAG CYTO SCREEN PAP RLFX HPV (08/31/2020 1:46 PM NUCLEAR FUELS RESEARCH ENGINEER) CLINICAL INFORMATION SCREENING 09/08/2020 8:20 AM NUCLEAR FUELS RESEARCH ENGINEER [facility] LAST MENSTRUAL PERIOD UNK 09/08/2020 8:20 AM NUCLEAR FUELS RESEARCH ENGINEER [facility] PREV PAP: INFORMATION NOT PROVIDED 09/08/2020 8:20 AM NUCLEAR FUELS RESEARCH ENGINEER [facility] PREV BX: INFORMATION NOT PROVIDED 09/08/2020 8:20 AM NUCLEAR FUELS RESEARCH ENGINEER [facility] SOURCE Endocervix 09/08/2020 8:20 AM NUCLEAR FUELS RESEARCH ENGINEER [facility] ADEQUACY: SEE COMMENT 09/08/2020 8:20 AM NUCLEAR FUELS RESEARCH ENGINEER [facility] Comment: Satisfactory for evaluation. Endocervical/transformation zone component present. Age and/or menstrual status not provided GENERAL CATEGORIZATION: EPITHELIAL CELL ABNORMALITY(A) 09/08/2020 8:20 AM NUCLEAR FUELS RESEARCH ENGINEER [facility] PAP INTERP SEE COMMENT(A) 09/08/2020 8:20 AM NUCLEAR FUELS RESEARCH ENGINEER [facility] Comment: Atypical Squamous Cells, cannot exclude High Grade Squamous Intraepithelial Lesion (ASC-H) COMMENT SEE COMMENT 09/08/2020 8:20 AM NUCLEAR FUELS RESEARCH ENGINEER [facility] Comment: This case could not be evaluated with computer assisted technology. The slide was manually screened according to routine procedures. SUPERVISOR RUBBER COVERING: SEE COMMENT 2019 8:20 AM NUCLEAR FUELS RESEARCH ENGINEER [facility] Comment: DEEPIKA FONSECA(ASCP) CT screening location: [place] [address] [place] [address] PATHOLOGIST SEE COMMENT 09/08/2020 8:20 AM NUCLEAR FUELS RESEARCH ENGINEER [facility] ST Comment: Jay Brown M.D., Board Certified in Anatomic Pathology and Cytopathology. (electronic signature) EXPLANATORY NOTE SEE COMMENT 8:20 AM NUCLEAR FUELS RESEARCH ENGINEER [facility] Comment: EXPLANATORY NOTE: The Pap is a screening test for cervical cancer. It is not a diagnostic test and is subject to false negative and false positive results. It is most reliable when a satisfactory sample, regularly obtained, is submitted with relevant clinical findings and history, and when the Pap result is evaluated along with historic and current clinical information. Genital SWAB OF ENDOCERVIX / Unknown Collection / Unknown 08/31/2020 1:46 PM NUCLEAR FUELS RESEARCH ENGINEER 08/31/2020 1:46 PM NUCLEAR FUELS RESEARCH ENGINEER Narrative [facility] - 09/08/2020 8:20 AM NUCLEAR FUELS RESEARCH ENGINEER Performing Organization Information: Site ID: SL Name: [facility] Address: [facility] [place] [address] Director: Brenna Roberts us Brock Sung MD PATHOLOGY/CYTOLOGY ORDERABL ES Final Result [facility] [phone] from Last 3 Months or Most Recently Relevant to Health Maintenance Insurance RX [employer] PL[employer] (INTERNAL) [facility] [employer] RX [employer] Express Advance Directives For more information, please contact: [phone] * Full Code (Latest Code Status on File) Date Activated Date Inactivated Comments 07/19/2023 3:24 PM 07/20/2023 5:41 PM * Full Code Date Activated Date Inactivated Comments 07/19/2023 9:17 AM 07/19/2023 3:24 PM * Full Code Date Activated Date Inactivated Comments 05/04/2023 12:16 PM 05/05/2023 6:53 PM * Full Code Date Activated Date Inactivated Comments 05/04/2023 7:16 AM 05/04/2023 12:16 PM * Full Code Date Activated Date Inactivated Comments 05/04/2023 5:40 AM 05/04/2023 7:16 AM Care Teams Bus Or Truck Garage Mechanic Relationship Specialty Start Date End Date Ellie Francois MD PCP - General Family Practice 10/06/20
--- OUTSIDE RECORDS SUMMARY | 2024-11-29 07:26 | XMS_ITS | Clinical Summary ---
Author Organization [facility] Address [address] [place] [address] Care Team Providers Care Buildings And Grounds Superintendent Name Role Phone Ellie Francois MD Primary Care Provider Allergies No known active allergies Medications mv,Ca,min-iron-FA -guarana-caff 18 mg iron- 400 mcg-180 mg tabletIndications :One A Day Multivitamin Take by mouth Active HAK43-HR-nu6-nif- epa-fish oil 400 mcg-35 mg -25 mg-5 [...] (10/04/2022): Added automatically from request for surgery [id number] Surgical History Surgery Date Site/Laterality Comments GASTRIC BYPASS 10/16/2002 - 10/15/2003 For Weight Loss UTERINE FIBROID SURGERY 12/14/2020 - 01/13/2021 Medical History Medical History Date Comments Asthma when she was a k id Cancer (CMS/HCC) (HCC) Family History Medical History Relation Name Comments Cancer Maternal Grandfather Cancer Maternal Grandmother Obesity Mother Obesity Other FamilyHxOf Relation Name Status Comments Maternal Grandfather Maternal Grandmother Mother Other FamilyHxOf Alive Social History Tobacco Use Types Packs/Day [...] on file Legal Sex Female 2:05 PM METER CHANGES RECORDS CLERK Gender Identity Not on file Sexual Orientation Not on file Obstetrics History Para Term AB IAB SAB Ectopic Multiple Livin g Live Births 0 0 0 0 0 0 0 0 0 0 0 Last Filed Vital Signs Vital Sign Reading Time Taken Comments Blood Pressure 112/73 01/19/2023 2:50 PM CDT Pulse 69 01/19/2023 2:50 PM CDT Temperature 36.6 C (97.8 F) 11/28/2019 9:15 AM METER CHANGES RECORDS CLERK Respiratory Rate 20 11/28/2019 9:15 AM METER CHANGES RECORDS CLERK Oxygen Saturation 98% 11/28/2019 9:15 AM METER CHANGES RECORDS CLERK Inhaled Oxygen Concentration - - Weight 88.7 kg (195 lb 9.6 oz) 01/19/2023 2:50 P M CDT Height 172.7 cm (5' 8 ) 01/19/2023 2:50 PM CDT Body Mass Index 29.74 01/19/2023 2:50 PM CDT Plan of Treatment Scheduled Procedures Name Priority Associated Diagnoses Date/Ti me PANNICULECTOMY Pannus, abdominal Health Maintenance Due Date Last Done Comments Breast Cancer Screening-Mammogram 1970 Cervical Cancer Screening 1970 Colon Cancer Screening-Colonoscopy 1970 Depression Screening 1970 Hepatitis C Screening 1970 DTaP/Tdap/Td Vaccine (1 - Tdap) 12/14/1982 Hepatitis B Screening 12/14/1989 Regular Well Visit/Exam 18-64 12/14/1989 Zoster Vaccine (1 of 2) 12/14/2021 Influenza Vaccine (#1) 2024 Pneumococcal vaccine <65 Aged Out No longer eligible based on patient's age to complete this topic Insurance [employer] [place] [address] Care Teams Buildings And Grounds Superintendent Relationship Specialty Start Date End Date Ellie Francois MD [address] [facility] [address] [place] [address] PCP - General Family Medicine 11/14/19
[2024-11-29 08:01] LABS: Eosinophils Absolute Auto 0.2 K/mm3 (0-0.3); Eosinophils Percent Auto 5.2 % (0-4.4); Hematocrit 35.8 % (37.0-47.0); Hemoglobin 10.5 g/dL (12.0-15.0); Immature Granulocyte Absolute 0.01 K/mm3 (0.00-0.031); Immature Granulocyte Percent A 0.3 % (0-0.5); Immature Platelet Fraction Pct 3.1 % (0.9-11.2); Lymphocytes Absolute Auto 0.89 K/mm3 (0.9-3.2); Lymphocytes Percent Auto 28.8 % (18.3-44.2); Mean Corpuscular HGB Conc 29.3 g/dl (32-36); Mean Corpuscular Hemoglobin 20.5 pg (26-34); Mean Corpuscular Volume 69.9 fl (80-100); Monocytes Absolute Auto 0.3 K/mm3 (0.1-0.6); Neutrophils Absolute Auto 1.7 K/mm3 (1.3-6.7); Neutrophils Percent Auto 53.7 % (45.5-73.1); Platelet Count Result 237 k/mm3 (150-375); Red Blood Count 5.12 M/mm3 (4.2-5.4); Red Cell Distribution Width 20.4 % (11.5-14.5); White Blood Count 3.1 K/mm3 (4.5-10.0)
[2024-11-29 08:25] LABS: Hypochromasia 2+; Microcytosis 1+ (NORMAL); Ovalocytes 1+; Platelet Estimate Adequate (Adequate)
[2024-11-29 08:26] LABS: Schistocytes None Seen
[2024-11-29 08:49] LABS: Hemoglobin A1C 5.6 % (<5.7)
[2024-11-29 09:02] LABS: Alanine Aminotransferase 24 U/L (6-35); Albumin Level 3.7 g/dL (3.5-5.1); Alkaline Phosphatase 157 U/L (38-126); Anion Gap 10 mmol/L (4-12); Aspartate Amino Transferase 24 U/L (14-36); Bilirubin,Total 0.4 mg/dL (0.2-1.3); Blood Urea Nitrogen 12 mg/dL (7-17); Carbon Dioxide 25 mmol/L (22-30); Chloride 105 mmol/L (98-107); Cholesterol 164 mg/dL (0-200); Estimated Glomerular Filt Rate > 60; Glucose 70 mg/dL (65-110); HDL Direct 74 mg/dL; Potassium 4.2 mmol/L (3.4-5.0); Sodium 140 mmol/L (137-145); Triglycerides 46 mg/dL (<150)
[2024-11-29 09:10] LABS: LDL Cholesterol Direct 73 mg/dL
[2024-11-29 09:16] LABS: Free T4 Free Thyroxine 1.15 ng/dL (0.78-2.19)
[2024-11-29 09:18] LABS: Free T3 3.02 pg/mL (2.71-6.16)
== END 2024-11-29 07:16 | disposition home or self-care (01) ==
PROVIDERS: PCP Family Medicine; Visit Provider Physician Assistant
DX: M19.90 Unspecified osteoarthritis, unspecified site (principal); Z13.220 Encounter for screening for lipoid disorders; R53.83 Other fatigue; E07.9 Disorder of thyroid, unspecified; F51.04 Psychophysiologic insomnia; R53.82 Chronic fatigue, unspecified
CPT/HCPCS: 36415; 80053; 80061; 82607; 83036; 84439; 84443; 84481; 85025; 85055

== ENCOUNTER 2024-12-09 08:40 | Outpatient (CLI) | payer BC, SELFPAY ==
--- OUTSIDE RECORDS SUMMARY | 2024-12-09 09:00 | XMS_ITS | Clinical Summary ---
Author Organization [facility] [employer] Address [address] [place] [address] Care Team Providers Care Supervisor Wheel Shop Name Role Phone Unavailable Primary Care Provider Unavailabl e Source Comments [facility] [employer],non-owned Affiliates and Associated Physician Practices is amultiple site organization consisting of ambulatory clinics and hospital sitesin [place], [place], [place] and [place]. This disclosure is being madepursuant to the Care Everywhere program and may not contain all information available regarding this patient. Last updated 18.[facility] [employer] Social History Tobacco Use Types Packs/Day Years [...]
--- OUTSIDE RECORDS SUMMARY | 2024-12-09 09:00 | XMS_ITS | Patient Health Summary ---
Author Organization [facility] Address [address] [place] [place] [address] Care Team Providers Care Semiconductor Package Symbol Stamper Name Role Phone Unavailable Primary Care Provider Unavailabl e Note from [facility],non-owned Affiliates and Associated Physician Practices is amultiple site organization consisting of ambulatory clinics and hospital sitesin [place], [place], [place] and [place]. This disclosure is being madepursuant to the Care Everywhere program and may not contain all information available regarding this patient. Last updated 18.[facility] Social History Tobacco Use Types Packs/Day Years Used Date Smoking Tobacco: Never Assessed Sex and Gender Information Value Date Recorded Sex Assigned at Not on file Gender Identity Not on file Sexual Orientation Not on file
--- OUTSIDE RECORDS SUMMARY | 2024-12-09 09:00 | XMS_ITS | Referral Summary ---
Author Organization [facility] Address [address] [place] [address] Care Team Providers Care Fruit Washer Name Role Phone Unavailable Primary Care Provider Unavailabl e Source Comments [facility],non-owned Affiliates and Associated Physician Practices is amultiple site organization consisting of ambulatory clinics and hospital sitesin [place], [place], [place] and [place]. This disclosure is being madepursuant to the Care Everywhere program and may not contain all information available regarding this patient. Last updated 18.[facility] Social History Tobacco Use Types Packs/Day Years Used Date Smoking Tobacco: Never Assessed Sex and Gender Information Value Date Recorded Sex Assigned at Not on file Gender Identity Not on file Sexual Orientation Not on file Plan of Treatment Not on file
--- OUTSIDE RECORDS SUMMARY | 2024-12-09 09:00 | XMS_ITS | Data Portability ---
Author Organization [place] [facility], Main Office Address [address] [place] [address] Care Team Providers Care Hemotherapist Name Role Phone KAYY JORDAN Primary Care [...] more than half the time spent in pduf-tf-feny care. [email or web address] Not available 03/30/2023 14:11:13 Plan of Treatment Reminders Order Date Submit Date Provider Last Modified By Organization Details Last Modified Time Details Appointments None recorded. Lab None recorded. Referral None recorded. Procedures None recorded. Surgeries None recorded. Imaging XR, hip, bilateral 2022 023 [email or web address] [facility], [facility], [place], [address], 15:45:56 Medication Orders None recorded. Patient TargetsNo [...] eral No observ ation record ed. [email or web address] [facility] [address], [place], [address], 03/30/2023 14:06:10 04/11/20 23 04/07/2023 bone densi ty No observ ation record ed. [place] [id number] [facility] [address], [place], [address], 04/19/2023 16:04:08 04/12/20 23 04/10/2023 MRI, hip, w/o contr ast No observ ation record ed. [address], [place], [address], 04/12/2023 15:34:04 Result Notes None recorded. Problems Name Problem SNOMED Code Status Onset Date Resolution Date Notes Provider Name and Address Organization Details Recorded Time Bilateral hip joint pain 5969711000817 9100 Active 2022 CORTEZ Samaniego null, [facility] [employer] [facility] 3 11:35:23 Osteoarthri tis 716661179 Active 2022 Megan Ritchie CMA null, [place] [employer] [place] [employer] [facility] 3 13:58:34 Osteoporosi s 67916426 Active 2022 Megan Ritchie CMA null, [facility] [employer] [facility] 3 14:02:35 Osteopenia 337696318 Active 2022 Megan Ritchie CMA null, [facility] [employer] [facility] 3 16:04:54 Vitamin D deficiency 57425920 Active 2022 Megan Ritchie CMA null, [facility] [employer] [facility] 3 09:04:53 Problem Notes None recorded. Procedures Surgical History Date Name Laterality Status Provider Name and Address Organization Details Recorded Time excision of skin completed CORTEZ Samaniego [facility] [employer] [facility] 03/30/2023 11:34:22 Imaging Results Imaging Date Name Status LastModified by Organiz ation Details LastModified Time 03/16/2023 XR, hip + pelvis, bilateral, 2 view completed Information not available 03/28/2023 11:36:28 04/15/2022 XR, hip + pelvis, unilateral, 2 or 3 view completed Information not available 03/28/2023 11:36:28 03/30/2023 XR, hip, bilateral completed [email or web address] [facility] [address], [place], [address], 03/30/2023 14:06:10 04/07/2023 bone density completed [address], [place], [address], 04/19/2023 16:04:08 04/10/2023 MRI, hip, w/o contrast completed [address], [place], [address], 04/12/2023 15:34:04 Procedure Notes None recorded. Medical [...] Updated DateTime 03/30/2023 162.56 cm 29.4 kg/m2 32510.3 g CORTEZ Samaniego [facility] Fwd: [employer] [facility] 03/30/2023 11:54:38 Social History Question Answer Notes LastModified by Organizat ion Details LastModified Time Tobacco Smoking Status Never Smoker CORTEZ Samaniego ami [facility] Fwd: [employer] [facility] 03/30/2023 11:33:36 What Is Your Level Of Alcohol Consumption? None [email or web address] Information not available 03/30/2023 Sex: Unknown Functional Status None recorded. Mental Status None recorded. Family History Relationship Description Onset Age of this Age Resolved Age Notes LastModified by Organization Details LastModified Time Maternal Grandfather Family history of malignant neoplasm [email or web address] Not available 2022 11:33:29 Maternal Grandmother Family history of malignant neoplasm [email or web address] Not available 2022 11:33:29 Medical History Condition Response URINARY/BLADDER/KIDNEY PROBLEMS Y ARTHRITIS Y GOUT Y CANCER: SPECIFY Y Gynecological HistoryNo gynecological history recorded. Obstetrics History GPAL:G 0 P 0 0 0 0 Past Encounters Encounter ID Performer Location Encounter Start Date Encounter Closed Date Diagnosis/Indication Diagnosis SNOMED-CT Code Diagnosis ICD10 Code Diagnosis Note [id number] Beck Mena MD [facility] [address] [address] 03/30/2023 11:03:41 03/30/2023 14:15:54 Bilateral hip joint pain 9721880235 3883466 M25.551 M25.552 Health Concerns Section Related Observation LastModified by Organization Detai ls LastModified Time None Recorded Concern Status LastModified by Organization Details LastModified Time None Recorded Advance Directives Directive None Recorded Payers Encounter Date Sequence Insurance Name Policy Number Policy Rankin Covered Member ID Rankin Member ID Guarantor Name 03/30/2023 1 [place] [id number] Brady Morataya [id number] Brady Sanden Notes Date Note Type Note Provider Name and Address Organization Details Recorded Time 03/30/2023 text/html patient is a 52-year-old female referred by Dr. Rider for evaluation of her hip arthritis. She had x-rays on 03/16/2023 at [facility], frogleg lateral of each hip and [...] 52 lb weight loss. Beck Mena MD [address] [place] [address], [place], [address], [place] [facility] 03/30/2023 14:11:26 OBGyn Episode No OBEpisode recorded.
--- OUTSIDE RECORDS SUMMARY | 2024-12-09 09:01 | XMS_ITS | Clinical Summary ---
Author Organization [facility] Address [address] [place] [address] Care Team Providers Care Director Of Retail Marketing Name Role Phone Ellie Francois MD Primary Care Provider +1- [phone] Allergies No known active allergies Medications pantoprazole [...] left hip 05/04/2023 GERD (gastroesophageal reflux disease) 3 Leukopenia 05/04/2023 History of cervical cancer 05/04/2023 Vitamin D deficiency 04/20/2023 Osteopenia 04/19/2023 Osteoarthrosis 04/05/2023 Osteoporosis 04/05/2023 Bilateral low back pain without sciatica 023 Pannus, abdominal 10/04/2022 Overview (06/02/2023): Added automatically from request for surgery [id number] Proximal leg weakness 08/01/2022 Neuropathy 08/01/2022 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 Pain in both lower extremities 08/01/2022 Pain of left sacroiliac joint 08/01/2022 Stage III carcinoma of cervix 12/25/2020 Cervical carcinoma 12/17/2020 Cervical mass 10/13/2020 Encounters Date Type Department Care Team Description 12/04/2024 External Device Data ST[facility] ABSTRACTION Provider, Abstract 12/03/2024 External Device Data [facility] ABSTRACTION Provider, Abstract 12/03/2024 External Device Data [facility] ABSTRACTION Provider, Abstract 11/12/2024 External Device Data [facility] ABSTRACTION Provider, Abstract 11/06/2024 External Device Data [facility] ABSTRACTION Provider, Abstract 11/06/2024 External Device Data ST[facility] ABSTRACTION Provider, Abstract 10/30/2024 External Device Data ST[facility] ABSTRACTION Provider, Abstract 10/10/[address] [facility] Orthopedic Surgery [address] [place] [address] Keven Cooper MD 10/10/[address] [facility] Orthopedic Surgery [address] [place] [address] Keven Cooper MD tooth problem from Last 3 Months Family History Medical [...] on file Legal Sex Female 5:32 PM SLEEVE BASTER Gender Identity Not on file Sexual Orientation [...] 93.9 kg (207 lb) 09/02/2024 9:02 AM SLEEVE BASTER Height 170.2 cm (5' 7 ) 09/02/2024 9:02 AM SLEEVE BASTER Body Mass Index 32.42 09/02/2024 9:02 AM SLEEVE BASTER Plan of Treatment Health Maintenance Due Date [...] 05/10/2032 05/10/2022, 05/10/20 Colorectal Cancer Screening 05/10/2032 Medical Devices Implanted Type Area Pipeline Executive Device Identifier Shelf Expiration Date Model / Serial / Lot Endo Clip Ii 10mm 336127 - [id number] Implanted:Qty: 1 on 12/17/2020 by Jm Sanchez MD at [facility] Clip N/A: Pelvis [employer] - COVIDIEN [id number] 07/15/2025 [id number] / / [id number] Doctor Of Naprapathy Clip Surgiclip Silvio 13in 690064 - [id number] Implanted:Qty: 1 on 03/09/2023 by Moe Quinteros II, MD at [facility] N/A: Abdomen [employer] - COVIDIEN 07/15/2027 [id number] / / [id number] Doctor Of Naprapathy Clip Surgiclip Silvio 13in 204155 - [id number] Implanted:Qty: 1 on 03/09/2023 by Moe Quinteros II, MD at [facility] N/A: Abdomen [employer] - COVIDIEN [id number] 07/15/2027 [id number] / / [id number] Doctor Of Naprapathy Clip Surgiclip Silvio 13in 938752 - [id number] Implanted:Qty: 1 on 03/09/2023 by Moe Quinteros II, MD at [facility] N/A: Abdomen [employer] - COVIDIEN 03/15/2027 [id number] / / [id number] Hemostatic Surgicel 2x14in 1950 - [id number] Implanted:Qty: 1 on 03/09/2023 by Moe Quinteros II, MD at [facility] Hemostatic N/A: Abdomen J&J- ETH[employer]ON INC 05/15/20271950 / / [id number] Shell G7 Pps Finned Soham 52mm [id number] - [id number] Implanted:Qty: 1 on 05/04/2023 by Keven Cooper MD at [facility] Hip Left: Hip ANABEL BIOMET [id number] 12/14/2032 [id number] 03 / / [id number] Stem Fem Taperloc Sz15 51-023736 - [id number] Implanted:Qty: 1 on 05/04/2023 by Keven Cooper MD at [facility] Hip Left: Hip A[employer]EL [employer]ET [id number] 11/13/2028 51-1001 50 / / [id number] Shell G7 Pps Finned Szf 56mm [id number] - [id number] Implanted:Qty: 1 on 07/19/2023 by Keven Cooper MD at [facility] Hip Right: Hip A[employer] [id number] 01/15/2033 [id number] / / [id number] Stem Fem Taperloc Sz16 51-285611 - [id number] Implanted:Qty: 1 on 07/19/2023 by Keven Cooper MD at [facility] Hip Right: Hip A[employer]BEL BI[employer]ET [id number] 10/22/2031 [id number] / / [id number] Biomet Ceramic Head 36mm Implanted:Qty: 1 on 07/19/2023 by Keven Cooper MD at [facility] Hip Right: Hip BIOMET INC 03/22/2033 650-0660 / / [id number] Screw Trlgy St 6.5x30mm 68-5025-398-30 - [id number] Implanted:Qty: 1 on 05/04/2023 by Keven Cooper MD at [facility] Screw Left: Hip ANABEL US INC 01/27/2033 [id number] / / [id number] Screw Trlgy St 6.5x30mm 12-9235-453-30 - [id number] Implanted:Qty: 1 on 07/19/2023 by Keven Cooper MD at [facility] Screw Right: Hip ANA[employer] INC [id number] 03/07/2033 [id number] / / [id number] Edgar Slee[address] Ct/Mr, 40mm Implanted:Qty: 1 on 02/15/2021 by Jm Sanchez MD at [facility] N/A: Vagina [id number] 08/24/2023 915319-13 / / [id number] Description: charged by radiology G7 Acetabular System Longevity Highly Crosslinked Polyethylene Liner High Wall Implanted:Qty: 1 on 05/04/2023 by Keven Cooper MD at [facility] Left: Hip BIOMET- ORTH[employer] INC 01/15/[id number] / / [id number] Biolox Delta Modular Ceramic Head Implanted:Qty: 1 on 05/04/2023 by Keven Cooper MD at [facility] Left: Hip [employer]OM[employer] OR[employer] 08/19/2032 650-0660 / / [id number] Anabel Acetabular System Highly Crosslinked Polyethylene Liner High Wall 36mm Implanted:Qty: 1 on 07/19/2023 by Keven Cooper MD at [facility] Right: Hip BI[employer] INC [id number] 02/14/[id number] / / [id number] Procedures Procedure Name Priority Date/Time Associated Diagnosis Comments HEMOGLOBIN A1C Routine 04/28/2023 9:33 AM CDT MAMMO 3D KYRA SCREEN BILAT W OR WO CAD Routine 02/07/2023 8:08 AM CDT Encounter for screening for malignant neoplasm of breast, unspecified screening modality COLONOSCOPY REPORT 05/10/2022 3: 07 PM CDT CERV/VAG CYTO SCREEN PAP RLFX HPV Routine 08/31/2020 1:46 PM SLEEVE BASTER Well woman exam with routine gynecological exam from Last 3 Months or Most Recently Relevant to Health Maintenance Results * (ABNORMAL) HEMOGLOBIN A1C (04/28/2023 9:33 AM CDT) HEMOGLOBIN A1C 5.7(H) <5.7 % 04/28/2023 11:02 AM CDT [facility] EST. AVG GLUCOSE, A1C 117 mg/dL 04/28/2023 11:02 AM CDT [facility] Blood Venipuncture / Unknown 04/28/2023 9:33 AM CDT 04/28/2023 10:27 AM CDT Narrative [facility] - 04/28/2023 11:02 AM CDT HGB A1C INTERPRETATION NORMAL: <5.7% PRE-DIABETES: 5.7 - 6.4% DIABETES: 6.5% OR GREATER Dania Yee PA-C CHEMISTRY ORDERABLES Final R esult [facility] [employer] [facility] CLIA# [id number] [address] [place] [address] * MAMMO SCRN BILAT 3D KYRA W [...] CAD DATE: 02/07/2023 8:08 AM DICTATION LOCATION: [facility] HISTORY: Routine yearly screening exam. TECHNIQUE: Low-dose [...] CAD DATE: 02/07/2023 8:08 AM DICTATION LOCATION: [facility] HISTORY: Routine yearly screening exam. TECHNIQUE: Low-dose [...] Terrell MD - 05/10/2022 3:06 PM CDT [facility] Endoscopy Patient Name: Brady Morataya Procedure Date: [...] Number of Addenda: [phone] ; [place] [address] us Catherine Terrell MD GI PROCEDURE ORDERABLES F inal Result * (ABNORMAL) CERV/VAG CYTO SCREEN PAP RLFX HPV (08/31/2020 1:46 PM SLEEVE BASTER) CLINICAL INFORMATION SCREENING 09/08/2020 8:20 AM SLEEVE BASTER [facility] LAST MENSTRUAL PERIOD UNK 09/08/2020 8:20 AM SLEEVE BASTER [facility] PREV PAP: INFORMATION NOT PROVIDED 09/08/2020 8:20 AM SLEEVE BASTER [facility] PREV BX: INFORMATION NOT PROVIDED 09/08/2020 8:20 AM SLEEVE BASTER [facility] SOURCE Endocervix 09/08/2020 8:20 AM SLEEVE BASTER [facility] ADEQUACY: SEE COMMENT 09/08/2020 8:20 AM SLEEVE BASTER [facility] Comment: Satisfactory for evaluation. Endocervical/transformation zone component present. Age and/or menstrual status not provided GENERAL CATEGORIZATION: EPITHELIAL CELL ABNORMALITY(A) 09/08/2020 8:20 AM SLEEVE BASTER [facility] PAP INTERP SEE COMMENT(A) 09/08/2020 8:20 AM SLEEVE BASTER [facility] Comment: Atypical Squamous Cells, cannot exclude High Grade Squamous Intraepithelial Lesion (ASC-H) COMMENT SEE COMMENT 09/08/2020 8:20 AM SLEEVE BASTER [facility] Comment: This case could not be evaluated with computer assisted technology. The slide was manually screened according to routine procedures. SAILING MASTER: SEE COMMENT 2019 8:20 AM SLEEVE BASTER [facility] Comment: BKA, CT(ASCP) CT screening location: [place] [address] [place] [address] PATHOLOGIST SEE COMMENT 09/08/2020 8:20 AM SLEEVE BASTER [facility] Comment: Jay Brown M.D., Board Certified in Anatomic Pathology and Cytopathology. (electronic signature) EXPLANATORY NOTE SEE COMMENT 020 8:20 AM SLEEVE BASTER [facility] Comment: EXPLANATORY NOTE: The Pap is a [...] Unknown Collection / Unknown 08/31/2020 1:46 PM SLEEVE BASTER 08/31/2020 1:46 PM SLEEVE BASTER Narrative [facility] REFERENCE [facility] - 09/08/2020 8:20 AM SLEEVE BASTER Performing Organization Information: Site ID: SL Name: [facility] Address: [facility] [place] [address] Director: Brenna Roberts us Brock Sung MD PATHOLOGY/CYTOLOGY ORDERABL ES Final Result Performing Organization Address City/State/[facility] Co de Phone Number [facility] [phone] from Last 3 Months or Most Recently Relevant to Health Maintenance [place] [address] [place] [address] BLUE ACCESS CHOICE RX VANCE PLANS (INTERNAL) [facility] Internal Plans RX [employer] Express Advance Directives For more information, please contact: [phone] * Full Code (Latest Code Status on [...] 5:40 AM 05/04/2023 7:16 AM Care Teams Director Of Retail Marketing Relationship Specialty Start Date End Date Ellie Francois MD PCP - General Family Practice 10/06/20
--- OUTSIDE RECORDS SUMMARY | 2024-12-09 09:01 | XMS_ITS | Clinical Summary ---
Author Organization [facility] Address [address] [place] [address] Care Team Providers Care Cotton Chopper Name Role Phone Ellie Francois MD Primary Care Provider Allergies No known active allergies Medications mv,Ca,min-iron-FA -guarana-caff 18 mg iron- 400 mcg-180 mg tabletIndications :One A Day Multivitamin Take by mouth Active LPI17-EK-vy2-dvm- epa-fish oil 400 mcg-35 mg -25 mg-5 [...] (10/04/2022): Added automatically from request for surgery [id number] Surgical History Surgery Date Site/Laterality Comments GASTRIC [...] on file Legal Sex Female 2:05 PM CHIP MIXING MACHINE OPERATOR Gender Identity Not on file Sexual Orientation [...] 36.6 C (97.8 F) 11/28/2019 9:15 AM CHIP MIXING MACHINE OPERATOR Respiratory Rate 20 11/28/2019 9:15 AM CHIP MIXING MACHINE OPERATOR Oxygen Saturation 98% 11/28/2019 9:15 AM CHIP MIXING MACHINE OPERATOR Inhaled Oxygen Concentration - - Weight 88.7 [...] patient's age to complete this topic Insurance [employer] [address] Care Teams Cotton Chopper Relationship Specialty Start Date End Date Ellie Francois MD [address] [facility] [address] [place] [address] PCP - General Family Medicine 11/14/19
--- OUTSIDE RECORDS SUMMARY | 2024-12-09 09:01 | XMS_ITS | Referral Summary ---
Author Organization [facility] Address [address] [place] [address] Care Team Providers Care Industrial Tractor Driver Name Role Phone Ellie Francois MD Primary Care Provider Allergies No known active allergies Medications mv,Ca,min-iron-FA -guarana-caff 18 mg iron- 400 mcg-180 mg tabletIndications :One A Day Multivitamin Take by mouth Active YCC48-XF-fk8-izk- epa-fish oil 400 mcg-35 mg -25 mg-5 [...] (10/04/2022): Added automatically from request for surgery [id number] Social History Tobacco Use Types Packs/Day Years [...] on file Legal Sex Female 2:05 PM PATTERN MAKER Gender Identity Not on file Sexual Orientation Not on file Last Filed Vital Signs Vital Sign Reading Time Taken Comments Blood Pressure 112/73 01/19/2023 2:50 PM CDT Pulse 69 01/19/2023 2:50 PM CDT Temperature 36.6 C (97.8 F) 11/28/2019 9:15 AM PATTERN MAKER Respiratory Rate 20 11/28/2019 9:15 AM PATTERN MAKER Oxygen Saturation 98% 11/28/2019 9:15 AM PATTERN MAKER Inhaled Oxygen Concentration - - Weight 88.7 kg (195 lb 9.6 oz) 01/19/2023 2:50 P M CDT Height 172.7 cm (5' 8 ) 01/19/2023 2:50 PM CDT Body Mass Index 29.74 01/19/2023 2:50 PM CDT Plan of Treatment Scheduled Procedures Name Priority Associated Diagnoses Date/Ti me PANNICULECTOMY Pannus, abdominal Insurance [facility] CHOICE OOS Care Teams Industrial Tractor Driver Relationship Specialty Start Date End Date Ellie Francois MD [address] [facility] [address] [place] [address] PCP - General Family Medicine 11/14/19
--- OUTSIDE RECORDS SUMMARY | 2024-12-09 09:01 | XMS_ITS | Patient Health Record ---
Author Organization [facility] Address [address] [facility] [address] [place], [place] [address] Care Team Providers Care Splitter Head Name Role Phone KAYY DUNBAR Primary Care Provider Unavail able Power Jennings Unavailable [phone] REASON FOR REFERRAL No Information PLAN OF TREATMENT No Information Insurance Providers Payer Name Payer Address Payer Phone Subscriber Number Group Number Insured Name Patient Relationship to Insured Coverage Start Date Coverage End Date [facility] [address] [place] [address] [id number] Brady Morataya Self - patient is the insured 3
--- OUTSIDE RECORDS SUMMARY | 2024-12-09 09:01 | XMS_ITS ---
Author Organization [facility] Address [address] [place] [address] Care Team Providers Care Mercantile Agent Name Role Phone Ellie Francois MD Primary Care Provider +1- [phone] Active Problems Problem Noted Date Diagnosed Date Overactive bladder 07/21/2023 Primary osteoarthritis of right hip 07/19/2023 Primary osteoarthritis of left hip 05/04/2023 GERD (gastroesophageal reflux disease) Leukopenia 05/04/2023 History of cervical cancer 05/04/2023 Vitamin D deficiency 04/20/2023 Osteopenia 04/19/2023 Osteoarthrosis 04/05/2023 Osteoporosis 04/05/2023 Bilateral low back pain without sciatica 023 Pannus, abdominal 10/04/2022 Overview (06/02/2023): Added automatically from request for surgery [id number] Proximal leg weakness 08/01/2022 Neuropathy 08/01/2022 Sensory [...]
[2024-12-09 09:33] LABS: Iron 33 ug/dL (37-170)
[2024-12-09 09:43] LABS: Percent Iron Saturation 9 % (20-50)
[2024-12-09 10:09] LABS: Ferritin 6.36 ng/mL (11.1-264)
[2024-12-09 10:14] LABS: Folic Acid 3.1 ng/mL (2.76->20)
== END 2024-12-09 08:41 | disposition home or self-care (01) ==
LOC: ANHLAB 08:41
PROVIDERS: PCP Family Medicine; Visit Provider Physician Assistant
DX: D64.9 Anemia, unspecified (principal)
CPT/HCPCS: 36415; 82607; 82728; 82746; 83540; 83550